=== PATIENT | male | born 1995 | race African-American/Black ===

== ENCOUNTER 2021-02-24 13:50 | Emergency (ER) | payer OTHER ==
[~2021-02-24] VITALS: Ht 188 cm; Wt 69.0 kg
[2021-02-24 13:57] VITALS: BP 110/56
[2021-02-24] MEDS ORDERED: NAPR-681 PO (15:40)
[2021-02-24] MEDS ORDERED: CYCL5TAB PO (15:40)
== END 2021-02-24 15:50 | disposition home or self-care (01) ==
LOC: ER 13:50
DX: S16.1XXA Strain of muscle, fascia and tendon at neck level, initial encounter (principal); M25.562 Pain in left knee; M25.561 Pain in right knee; V43.52XA Car driver injured in collision with other type car in traffic accident, initial encounter; Y93.89 Activity, other specified; Y92.488 Other paved roadways as the place of occurrence of the external cause
CPT/HCPCS: 99282